=== PATIENT | female | born 1950 | race Caucasian/White ===

== ENCOUNTER 2022-01-25 11:38 | Outpatient (CLI) | payer SELFPAY | END 2022-01-25 11:39 | disposition home or self-care (01) | LOC: DI 11:38 | PROVIDERS: ATTEND Family Medicine | DX: R06.09 Other forms of dyspnea (principal); I51.7 Cardiomegaly; I34.0 Nonrheumatic mitral (valve) insufficiency; I34.8 Other nonrheumatic mitral valve disorders; I77.810 Thoracic aortic ectasia | CPT/HCPCS: 93306 ==

== ENCOUNTER 2022-01-25 12:47 | Outpatient (CLI) | payer SELFPAY ==
--- NOTE | 2022-01-25 13:44 | XRAY Report ---
PROCEDURE: Knee 3 View RT INDICATIONS: CHRONIC PAIN OF RT KNEE TECHNIQUE: 3 views of the right knee(s) were acquired. COMPARISON: None. FINDINGS: Bones: No fractures or dislocations. No patella subluxation. Moderate tricompartmental osteoarthrit is is seen more prominent in medial femoral tibial compartment and patellofemoral compartment. No divina picious bony lesions. Soft tissues: Moderate suprapatellar joint effusion is seen. No suspicious soft tissue calcifications . IMPRESSION: Moderate tricompartmental osteoarthritis more prominent in medial femoral tibial compart ment and patellofemoral compartment. No acute fracture or dislocation. Moderate joint effusion. Reviewed by: Giovanni Brennan MD on 01/25/2022 1:42 PM PDT Approved by: Giovanni Brennan MD on 01/25/2022 1:42 PM PDT Station ID: [id number]
== END 2022-01-25 12:48 | disposition home or self-care (01) ==
LOC: DI 12:47
PROVIDERS: ATTEND Family Medicine
DX: M17.11 Unilateral primary osteoarthritis, right knee (principal); M25.461 Effusion, right knee

== ENCOUNTER 2023-01-22 14:18 | Outpatient (CLI) | payer SELFPAY ==
--- NOTE | 2023-01-22 16:04 | XRAY Report ---
PROCEDURE: Hips 3-4V BILAT INDICATIONS: HIP PAIN LEFT TECHNIQUE: 3 views of hips were acquired. COMPARISON: None. FINDINGS: Bones: No fractures or dislocations. No suspicious bony lesions. Mild degenerative joint disease in hip and sacroiliac joint bilaterally. Degenerative disc disease in the lower lumbar spine. The visu alized pelvic ring appears intact. Soft tissues: No suspicious soft tissue calcifications or masses. IMPRESSION: Mild degenerative joint disease bilaterally. Reviewed by: Sherry Navarro MD on 01/22/2023 3:03 PM AKDT Approved by: Sherry Navarro MD on 01/22/2023 3:03 PM AKDT Station ID: [id number]
--- NOTE | 2023-01-22 16:18 | XRAY Report ---
PROCEDURE: Chest 2 View X-Ray INDICATIONS: DYSPEA ON EXERTION TECHNIQUE: 2 views of the chest were acquired. COMPARISON: None available. FINDINGS: There are respiratory motion artifacts on the lateral view. Surgical changes and devices: None. Lungs and pleura: Bilateral interstitial prominence. No focal consolidation. No pleural effusions or pneumothorax. Mediastinum: Mediastinal contours are normal. Heart size is moderately increased. Bones and chest wall: No suspicious bony abnormalities. Soft tissues appear unremarkable. IMPRESSION: 1. Mild cardiomegaly and bilateral interstitial prominence suggesting mild CHF. Reviewed by: Sherry Navarro MD on 01/22/2023 3:17 PM AKDT Approved by: Sherry Navarro MD on 01/22/2023 3:17 PM AKDT Station ID: [id number]
--- NOTE | 2023-01-22 16:19 | DEXA Report ---
PROCEDURE: Dexa Spine and/or Hip INDICATIONS: POST MENOPAUSAL TECHNIQUE: Dual energy x-ray absorptiometry (DXA) was performed on a [employer] System. Regions measur ed are the AP Spine, femoral neck, and if needed forearm. COMPARISON: None. FINDINGS: Lumbar Spine: Bone Mineral Density 0.949 g/cm/cm,T score -1.9, osteopenic Left Femoral Neck: Bone Mineral Density 0.889 g/cm/cm, T score -1.1, osteopenia Left Hip: Bone Mineral Density 0.974 g/cm/cm,T score -0.3, normal (T score greater or equal to -1.0: NORMAL) (T score from -1.1 to -2.4: OSTEOPENIA) (T score less than or equal to -2.5 to: OSTEOPOROSIS) Impression: Based on WHO criteria, the patient has osteopenia. Patients with diagnosis of osteoporosis or osteopenia should have regular bone mineral density assess ment. For those eligible for Medicare, routine testing is allowed once every 2 years. Testing frequ ency can be increased for patients who have rapidly progressing disease or for those who are receivin g medical therapy to restore bone mass. Reviewed by: Sherry Navarro MD on 01/22/2023 3:18 PM [facility] Approved by: Sherry Navarro MD on 01/22/2023 3:18 PM [facility] Station ID: [id number]
== END 2023-01-22 14:19 | disposition home or self-care (01) ==
LOC: DI 14:18
PROVIDERS: ATTEND Family Medicine
DX: Z13.820 Encounter for screening for osteoporosis (principal); M85.89 Other specified disorders of bone density and structure, multiple sites; M16.0 Bilateral primary osteoarthritis of hip; R06.09 Other forms of dyspnea; I51.7 Cardiomegaly; M54.32 Sciatica, left side; Z78.0 Asymptomatic menopausal state

== ENCOUNTER 2024-06-25 16:04 | Outpatient (CLI) | payer MEDICAID ==
--- NOTE | 2024-06-26 19:10 | XRAY Report ---
PROCEDURE: Lumbar Spine 2-3V INDICATIONS: LOW BACK PAIN TECHNIQUE: 3 view(s) of the lumbar spine were acquired. COMPARISON: None. FINDINGS: Bones: Vertebral body height and alignment is maintained. No suspicious bony lesions. Convex left th oracolumbar scoliosis present. Lower lumbar spine disc space narrowing and hypertrophic facet joints. No malalignment. Soft tissues: Overlying bowel gas pattern is normal. No suspicious soft tissue calcifications. IMPRESSION: Thoracolumbar dextroscoliosis and degenerative disc disease Reviewed by: Davis Ayers MD on 06/26/2024 6:08 PM [facility] Approved by: Davis Ayers MD on 06/26/2024 6:08 PM [facility] Station ID: [id number]
== END 2024-06-25 16:05 | disposition home or self-care (01) ==
LOC: DI 16:04
PROVIDERS: ATTEND Family Medicine
DX: M51.36 Other intervertebral disc degeneration, lumbar region (principal); M41.9 Scoliosis, unspecified; M47.816 Spondylosis without myelopathy or radiculopathy, lumbar region

== ENCOUNTER 2024-10-28 22:13 | Observation (INO) ==
--- NOTE | 2024-10-28 22:28 | ED Physician Documentation ---
History of Present Illness Stated complaint Stated Complaint: SOA Chief complaint Chief Complaint: Resp Additonal information Additional information: 74-year-old woman presents by private vehicle for shortness of breath. 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 She has a history of thyroid issues and is to see a neurologist and coating machine helper in the near future but does not know why. Meds/Allgy Allergies Allergies Allergy/AdvReac Type Severity Reaction Status Date / Time No Known Drug Allergies Allergy Verified 10/28/24 22:31 [facility] Social History Social History Relationship: Do you feel safe in your home environment?: Yes Suffered physical, verbal, emotional, or financial abuse?: No Exam Constitutional Histrionic and hyperventilating, she is incontinent of urine with vomit around her face. Eyes PERRL Significant nystagmus, exam difficult due to patient cooperation. Respiratory breath sounds equal bilaterally, normal respiratory effort and clear to auscultation bilaterally Cardiovascular normal heart rate noted, regular rhythm noted and no murmur Gastrointestinal abdomen normal to inspection, abdomen soft to palpation and nontender to palpation Neurology Initially cannot cooperate with detailed neurologic examination as she will not open her eyes due to her dizziness. As such unable to check for ataxia. Psychiatry oriented x3 Results Vitals Vitals: Vital Signs - 24 hr 10/28/24 22:31 10/28/24 22:39 10/28/24 22:40 Temperature 36.8 C Temperature Source Tympanic Pulse Rate 66 71 Respiratory Rate 28 H 60 H Blood Pressure 160/90 H 186/94 H O2 Saturation 100 100 O2 Source Room air Room air Pain Intensity 4 10 Oxygen O2 Source Room air Labs Labs: Laboratory Tests 10/28/24 22:42 WBC 8.2 RBC 4.06 L Hgb 12.9 Hct 37.0 MCV 91.1 MCH 31.8 H MCHC 34.9 RDW 12.3 Plt Count 174 MPV 9.1 Neut # (Auto) 6.4 Lymph # (Auto) 1.3 L [place] # (Auto) 0.4 Eos # (Auto) 0.1 Baso # (Auto) 0.0 Absolute Nucleated RBC 0.00 Nucleated RBC % 0.0 Sodium 138 Potassium 3.5 Chloride 105 Carbon Dioxide 22 Anion Gap 11.0 BUN 23 H Creatinine 0.5 L Estimated GFR (MDRD) 121 Glucose 153 H Calcium 9.3 Total Bilirubin 0.7 AST 19 ALT 19 Alkaline Phosphatase 87 Total Protein 7.0 Albumin 4.1 Globulin 2.9 Albumin/Globulin Ratio 1.4 PD Medical Decision Making ED course ED course: 74-year-old woman presents with severe acute onset vertigo with epigastric pain. Hard to tell initially if it is central or peripheral. That said she is outside the window for thrombolytics if this were a stroke. It is associated with epigastric pain. Will obtain CT imaging of the head and abdomen as well as lab work and ACS rule out. Medicate with Reglan/Dilaudid. Care to Dr. Logan at 11:30 PM shift change [address] CT imaging. CBC and CMP unremarkable. Low threshold to admit for MRI tomorrow. Discharge Plan Discharge Clinical Impression: Vertigo, Abdominal pain, epigastric Print Language: Turkmen/Castilian Stand Alone Forms: PCP List
[2024-10-28] MEDS: METOCLOPRAMIDE 10 MG/2 ML VIAL IVP STA (22:38)
[2024-10-28] MEDS: HYDROmorphone 1 MG/ML CARPUJECT IVP STA (22:39)
[2024-10-28] MEDS ORDERED: iohexoL-300 100 ML VIAL ONE (22:42)
[2024-10-28 22:49] LABS: BASOPHILS % (AUTO) 0.2 %; EOSINOPHILS # (AUTO) 0.1 10^3/uL (0.0-0.7); EOSINOPHILS % (AUTO) 1.1 %; HGB - HEMOGLOBIN 12.9 g/dL (12.0-16.0); LYMPHOCYTES # (AUTO) 1.3 10^3/uL (1.5-3.5); LYMPHOCYTES % (AUTO) 15.9 %; MEAN CORPUSCULAR HEMOGLOBIN 31.8 pg (27.0-31.0); MEAN CORPUSCULAR HGB CONC 34.9 g/dL (32.0-36.0); MEAN CORPUSCULAR VOLUME 91.1 fL (81.0-99.0); MEAN PLATELET VOLUME 9.1 fL (7.9-10.8); MONOCYTES # (AUTO) 0.4 10^3/uL (0.0-1.0); MONOCYTES % (AUTO) 4.4 %; NEUTROPHILS # (AUTO) 6.4 10^3/uL (1.5-6.6); NEUTROPHILS % (AUTO) 77.9 %; PLT - PLATELET COUNT 174 10^3/uL (130-450); RED BLOOD COUNT 4.06 10^6/uL (4.20-5.40); RED CELL DISTRIBUTION WIDTH 12.3 % (12.0-15.0); WHITE BLOOD COUNT 8.2 x10^3/uL (4.8-10.8)
[2024-10-28 23:08] LABS: ALBUMIN 4.1 g/dL (3.2-5.5); ALBUMIN/GLOBULIN RATIO 1.4 (1.0-2.2); BILIRUBIN,TOTAL 0.7 mg/dL (0.2-1.0); CALCIUM 9.3 mg/dL (8.5-10.3); CREATININE 0.5 mg/dL (0.6-1.3); POTASSIUM 3.5 mmol/L (3.5-4.5)
--- NOTE | 2024-10-28 23:51 | CT Report ---
PROCEDURE: CT Head WO INDICATIONS: IV only, abd pain TECHNIQUE: Noncontrast 4.5 mm thick angled axial sections acquired from the foramen magnum to the vertex. For r adiation dose reduction, the following was used: automated exposure control, adjustment of mA and/or kV according to patient size. COMPARISON: None. FINDINGS: Image quality: Excellent. CSF spaces: Basal cisterns are patent. No extra-axial fluid collections. Ventricles are normal in size and shape. Brain: No midline shift. No intracranial masses or hemorrhage. Garcia-white matter interface is norm al. Bilateral basal ganglia calcifications. Skull and face: Calvarium and visualized facial bones are intact, without suspicious lesions. Sinuses: Visualized sinuses and mastoids are clear. IMPRESSION: No acute intracranial pathology. Reviewed by: Rolando Ruiz MD on 10/28/2024 11:50 PM PST Approved by: Rolando Ruiz MD on 10/28/2024 11:50 PM [facility] Station ID: [id number]
--- NOTE | 2024-10-28 23:58 | CT Report ---
PROCEDURE: CT Abdomen/Pelvis W INDICATIONS: vertigo and abdominal pain. CONTRAST: Omni 300 100ml TECHNIQUE: After the administration of intravenous contrast, a CT scan of the abdomen and pelvis was performed. Images were recorded and evaluated at appropriate window settings. Reformats: coronal and sagittal. F or radiation dose reduction, the following was used: automated exposure control, adjustment of mA and /or kV according to patient size. COMPARISON: 01/22/2023 FINDINGS: Image quality: Suboptimal due to motion artifact and arm positioning. Lower chest: Marked cardiomegaly. Liver: No solid mass. Gallbladder: Surgically absent. Biliary tree: No intrahepatic or extrahepatic dilation, accounting for age. Spleen: No splenomegaly. Pancreas: No pancreatic ductal dilation. Adrenals: No adrenal nodule. Kidneys and ureters: No hydronephrosis. No renal cystic lesion which requires follow up. No solid mas s. Stomach, bowel and peritoneum: No gastric or small bowel dilation. No abnormal wall thickening. No pa thologic free fluid. Diverticulosis without evidence of diverticulitis. Normal appendix. Lymph nodes: No central or retroperitoneal adenopathy. Vessels: No infrarenal aortic aneurysm. Patent portal vein. PELVIS Reproductive organs: Unremarkable. Bladder: No abnormal wall thickening, accounting for underdistention. Pelvic lymph nodes: No pelvic adenopathy by size criteria. Bones: No aggressive osseous abnormality. Other: No significant ventral or inguinal hernia. IMPRESSION: Suboptimal due to motion artifact and arm positioning. Colonic diverticulosis without evidence of diverticulitis. Normal appendix. No definite nephrolithias is. Marked cardiomegaly. Reviewed by: Rolando Ruiz MD on 10/28/2024 11:57 PM PST Approved by: Rolando Ruiz MD on 10/28/2024 11:57 PM PST Station ID: [id number]
--- NOTE | 2024-10-29 00:01 | CT Report ---
PROCEDURE: CT Angio Head/Neck INDICATIONS: CVA sx TECHNIQUE: After the administration of intravenous contrast, 1 mm thick sections acquired from the aortic arch t hrough the [place] of Arizmendi. 3-dimensional zbeqaap-vxbvcoiji-psplswsbvr (MIP) and/or volume renderin g reformats were acquired of the central intracranial vasculature and neck separately. For radiation dose reduction, the following was used: automated exposure control, adjustment of mA and/or kV acco rding to patient size. CONTRAST: Omni 300 100ml COMPARISON: None. FINDINGS: Image quality: Diagnostic. HEAD CT: Central mesenteric fat stranding without adenopathy; findings typically indicate a benign process in the absence of enlarged lymph nodes. HEAD CT ANGIOGRAPHY: Anterior circulation: Intracranial internal carotid arteries are normal in size and flow. The flow within the paired anterior cerebral arteries is normal and symmetric. The flow within the middle cer ebral arteries is normal and symmetric. The anterior communicating artery is seen. No aneurysms are seen. Posterior circulation: Visualized portions of the vertebral arteries demonstrate normal caliber, and join to form a normal appearing basilar artery. Flow within the posterior cerebral arteries is norm al and symmetric. No aneurysms are seen. NECK CT ANGIOGRAPHY: Carotid system: The great vessels demonstrate a conventional anatomy as they arise from the aortic a rch. The origins of the common carotid arteries appear patent. The common carotid arteries demonstr ate normal caliber and courses. The bifurcation regions are both widely patent. The internal caroti d arteries demonstrate normal calibers and courses. Posterior circulation: The origins of the vertebral arteries both appear widely patent. The more perez perior extracranial portions of both vertebral arteries also demonstrate normal courses and calibers. They join to form a normal appearing basilar artery. Soft tissues: Visualized neck soft tissues demonstrate no suspicious abnormalities. Bones: No suspicious bony lesions. Visualized cervical spine appears normally aligned. IMPRESSION: No significant intracranial arterial abnormality is seen. No significant abnormality is seen within the arteries of the neck. The estimate of stenosis included in the report of the imaging study was calculated using the NASCET method Reviewed by: Rolando Ruiz MD on 10/28/2024 11:59 PM PST Approved by: Rolando Ruiz MD on 10/28/2024 11:59 PM PST Station ID: [id number]
[2024-10-29] MEDS: iohexoL-300 100 ML VIAL IVP ONE (00:37)
[2024-10-29] MEDS: HYDROmorphone 1 MG/ML CARPUJECT IVP STA (00:57)
[2024-10-29] MEDS ORDERED: MELATONIN 3 MG TABLET PO PRN (02:22)
[2024-10-29] MEDS ORDERED: MORPHINE 10 MG/ML VIAL IVP PRN (02:22)
[2024-10-29] MEDS ORDERED: BENZONATATE 100 MG CAPSULE PO PRN (02:22)
--- NOTE | 2024-10-29 02:32 | HISTORY & PHYSICAL EXAMINATION ---
Chief Complaint Chief Complaint Chief Complaint: dizziness, abd pain + nausea History of Present Illness History Obtained From History obtained from: ed chart review Exam Limitations: IT cart connection issues - please refer to ed charting for details History of Present Illness HPI Comment/Other: pt with acute onset of dizziness + nausea with epigastric and abdominal discomfort that started about 5 pm yesterday evening without apparent inciting factors. no falls or seizures reported. no reports of chest pain, fevers, chills. Review of Systems per ed charting [facility] Social History Social History Relationship: Do you feel safe in your home environment?: Yes Suffered physical, verbal, emotional, or financial abuse?: No Meds/Allgy Allergies Allergies Allergy/AdvReac Type Severity Reaction Status Date / Time No Known Drug Allergies Allergy Verified 10/28/24 22:31 Exam Exam per ed charting Conclusion/Plan Problem List (1) Vertigo: Lab Results 10/28/24 22:42 10/28/24 22:42 Other Other Results/Comments: pt with - - vertigo unclear etiology imaging thus far negative check mri check 2d echo meclizine and anti-nausea meds have helped - abdominal pain + nausea likely related to above epigastric pain imaging negative check lipase levels supportive mgmt f/u labs, imaging, neuro checks further orders per clinical course
--- NOTE | 2024-10-29 02:37 | ED Physician Documentation ---
ED Addendum Addendum Addendum: Patient endorsed to me by Dr. Pitts awaiting CTA head and neck results as well as CT abdomen pelvis results. Plan to admit her for MRI to rule out central etiology for her vertigo. I discussed with Dr. Connell, accepting telehospitalist. Disposition admit Condition stable Impression 1 vertigo 2 abdominal pain 3 nausea and vomiting Discharge Plan Discharge Patient Disposition: 66 [facility] DC/Xfer Condition: Stable Clinical Impression: Vertigo, Abdominal pain, epigastric
[2024-10-29] MEDS: MORPHINE 2 MG/ML CARPUJECT IVP PRN (04:42)
[2024-10-29] MEDS: ONDANSETRON 4 MG/2 ML VIAL IVP PRN (04:42)
[2024-10-29 06:27] LABS: BASOPHILS % (AUTO) 0.2 %; HCT - HEMATOCRIT 36.5 % (37.0-47.0); HGB - HEMOGLOBIN 12.7 g/dL (12.0-16.0); LYMPHOCYTES # (AUTO) 0.6 10^3/uL (1.5-3.5); LYMPHOCYTES % (AUTO) 10.2 %; MEAN CORPUSCULAR HGB CONC 34.8 g/dL (32.0-36.0); MEAN CORPUSCULAR VOLUME 91.9 fL (81.0-99.0); MEAN PLATELET VOLUME 9.2 fL (7.9-10.8); MONOCYTES # (AUTO) 0.3 10^3/uL (0.0-1.0); NEUTROPHILS # (AUTO) 5.4 10^3/uL (1.5-6.6); NEUTROPHILS % (AUTO) 85.4 %; PLT - PLATELET COUNT 158 10^3/uL (130-450); RED BLOOD COUNT 3.97 10^6/uL (4.20-5.40); RED CELL DISTRIBUTION WIDTH 12.3 % (12.0-15.0); WHITE BLOOD COUNT 6.3 x10^3/uL (4.8-10.8)
[2024-10-29] MEDS ORDERED: ZINC OXIDE 20% OINT 30 GM TUBE TOP PRN (06:35)
[2024-10-29] MEDS: LACTATED RINGERS 1,000 ML IV SCH (06:43)
[2024-10-29 06:51] LABS: ALBUMIN 3.9 g/dL (3.2-5.5); ALBUMIN/GLOBULIN RATIO 1.4 (1.0-2.2); BILIRUBIN,TOTAL 0.8 mg/dL (0.2-1.0); CALCIUM 8.8 mg/dL (8.5-10.3); CHOL/HDL RATIO 2.1 (<4.4); CHOLESTEROL 137 mg/dL; CREATININE 0.4 mg/dL (0.6-1.3); HDL CHOLESTEROL 65 mg/dL; LDL CHOLESTEROL,CALCULATED 64 mg/dL; MAGNESIUM 1.8 mg/dL (1.7-2.3); TOTAL PROTEIN 6.7 g/dL (6.4-8.9); TRIGLYCERIDES 42 mg/dL; VLDL CHOLESTEROL 8 mg/dL
[2024-10-29 07:03] LABS: THYROID STIMULATING HORMONE 2.92 uIU/mL (0.34-5.60)
[2024-10-29] MEDS: ENOXAPARIN 40 MG/0.4 ML SYRINGE SUBQ SCH (09:02)
[2024-10-29] MEDS: LACTOBACILLUS RHAMNOSUS GG CAPSULE PO SCH (09:03)
[2024-10-29] MEDS: MULTIVITAMIN W/MINERALS TABLET PO SCH (09:03)
[2024-10-29 11:18] LABS: ESTIMATED AVERAGE GLUCOSE 97 mg/dL (70-100)
--- NOTE | 2024-10-29 11:45 | PHARMACY PROGRESS NOTE ---
Best Possible Medication History Admit Date and Time: 10/29/24 0220 Home Medications Medication Instructions Recorded Confirmed Type atorvastatin 20 mg tablet 20 mg PO QPM 10/29/24 10/29/24 History levothyroxine 75 mcg tablet 75 mcg PO QDAC 10/29/24 10/29/24 History nortriptyline 10 mg capsule 10 mg PO QPM 10/29/24 10/29/24 History piroxicam 20 mg capsule 20 mg PO DAILY PRN pain 10/29/24 10/29/24 History Processed by: Pharmacy Medications reviewed in ED?: No Medication History completed: Yes Patient Interview: Completed (W/ ACTUARIAL ASSISTANT) Secondary Source(s): Pharmacy records and Insurance records [facility] Statement: As the person ultimately responsible for medication therapy, providers are able to order a medication from an existing home medication list in [facility] via the "Reconcile Routine" prior to Confirmation of that medication by administrative support specialist. Such practice is discouraged except when the physician, in their clinical judgment, deems that a medical need exists for a medication without regard to previous use.
[2024-10-29] MEDS: ONDANSETRON 4 MG/2 ML VIAL IVP ONE (11:50)
[2024-10-29] MEDS ORDERED: ONDANSETRON INJ 4 MG in SODIUM CHLORIDE 0.9% 50 ML IVP SCH (12:00)
[2024-10-29] MEDS: MORPHINE 2 MG/ML CARPUJECT IVP STA (17:04)
[2024-10-29] MEDS: ATORVASTATIN 10 MG TABLET PO SCH (21:22)
[2024-10-30 05:36] LABS: BASOPHILS % (AUTO) 0.4 %; EOSINOPHILS % (AUTO) 0.7 %; HGB - HEMOGLOBIN 10.9 g/dL (12.0-16.0); LYMPHOCYTES # (AUTO) 1.1 10^3/uL (1.5-3.5); LYMPHOCYTES % (AUTO) 23.2 %; MEAN CORPUSCULAR HEMOGLOBIN 31.5 pg (27.0-31.0); MEAN CORPUSCULAR VOLUME 95.4 fL (81.0-99.0); MEAN PLATELET VOLUME 9.4 fL (7.9-10.8); MONOCYTES # (AUTO) 0.3 10^3/uL (0.0-1.0); MONOCYTES % (AUTO) 6.6 %; NEUTROPHILS # (AUTO) 3.2 10^3/uL (1.5-6.6); NEUTROPHILS % (AUTO) 68.9 %; PLT - PLATELET COUNT 155 10^3/uL (130-450); RED BLOOD COUNT 3.46 10^6/uL (4.20-5.40); RED CELL DISTRIBUTION WIDTH 12.8 % (12.0-15.0); WHITE BLOOD COUNT 4.6 x10^3/uL (4.8-10.8)
[2024-10-30 05:55] LABS: CALCIUM 8.1 mg/dL (8.5-10.3); CREATININE 0.5 mg/dL (0.6-1.3); POTASSIUM 3.7 mmol/L (3.5-4.5)
[2024-10-30] MEDS: LEVOTHYROXINE 75 MCG TABLET PO SCH (06:38)
[2024-10-30] MEDS ORDERED: GI COCKTAIL 120 ML BOTTLE PO PRN (07:16)
[2024-10-30] MEDS ORDERED: LORazepam 1 MG TABLET PO PRN (07:16)
[2024-10-30] MEDS: SODIUM CHLORIDE FLUSH 0.9% 10 ML SYRINGE IVP SCH ×2 (08:45)
[2024-10-30] MEDS: polyethylene glycoL 3350 17 GM PACKET PO SCH (08:45)
[2024-10-30] MEDS: LORazepam 2 MG/ML VIAL IVP PRN (11:24)
[2024-10-30] MEDS: ACETAMINOPHEN 325 MG TABLET PO PRN (11:30)
[2024-10-30] MEDS: MAGNESIUM HYDROXIDE 2,400 MG/30 ML UDC PO ONE (12:21)
--- NOTE | 2024-10-30 14:44 | Discharge Summary ---
Discharge Summary Admit Date: 10/29/24 Discharge Date: 10/30/24 Discharging Provider: Ignacio Arizmendi NP Primary Care Provider: Fahad Mackenzie Code Status: Attempt Resuscitation DIAGNOSES Admission Diagnoses: Vertigo Abdominal pain Discharge Diagnoses with Status of Each Condition: Vertigochronic Abdominal painresolved HPI History of Present Illness: pt with acute onset of dizziness + nausea with epigastric and abdominal discomfort that started about 5 pm yesterday evening without apparent inciting factors. no falls or seizures reported. no reports of chest pain, fevers, chills. HOSPITAL COURSE Hospital Course: In the ER, CT head, CTA head and neck were performed and found to be negative. CT abdomen showed Diverticulosis without diverticulitis. Patient underwent echocardiogram, results still pending. Was given IV fluids for dehydration, and stool softeners for constipation. MRI was attempted, but we were unable to complete this due to severe anxiety in spite of IV Ativan. She was evaluated by physical therapy, and they report that she is safe to go home. I am sending her home on aspirin and an increased dose of Lipitor. Patient reports some constipation to make, I have encouraged her to use hqdj-fad-eorsqje stool softeners and fiber supplements Patient has expressed concern over an outpatient lumbar spine MRI. She is worried that she will miss this because of her recent hospitalization. I am reaching out to our MRI department to make sure they are aware that she was admitted and not near her phone. Whenever she does have her L-spine MRI, she will need significant amounts of anxiolytics ALLERGIES Allergies Allergy/AdvReac Type Severity Reaction Status Date / Time No Known Drug Allergies Allergy Verified 10/28/24 22:31 MEDICATIONS Ambulatory Orders Medication Instructions Recorded Confirmed levothyroxine 75 mcg tablet 75 mcg PO QDAC 10/29/24 10/29/24 nortriptyline 10 mg capsule 10 mg PO QPM 10/29/24 10/29/24 piroxicam 20 mg capsule 20 mg PO DAILY PRN pain 10/29/24 10/29/24 aspirin 81 mg tablet,delayed 81 mg PO DAILY #30 tabs 10/30/24 release atorvastatin 20 mg tablet 40 mg (2 x 20 mg) PO QPM #60 tabs 10/30/24 10/29/24 PHYSICAL EXAM AT DISCHARGE General Appearance: positive No acute distress and Alert Eyes Bilateral: positive Normal inspection and PERRL ENT: positive ENT inspection nml Neck: positive Nml inspection Respiratory: positive Chest non-tender Cardiovascular: positive Regular rate & rhythm Peripheral Pulses: positive 2+ Abdomen: positive Non-tender Skin: positive Color nml Extremities: positive Non-tender Neurologic/Psychiatric: positive Oriented x3 LABS 10/30/24 04:44 10/30/24 04:44 SEPSIS Current Stage of Sepsis: Ruled out FOLLOW UP Follow Up: With PCP TIME SPENT Time Spent in Discharge (Minutes): 35 Discharge Plan Discharge Patient Disposition: 01 Home, Self Care Condition: Stable Medically Cleared Date:: 10/30/24 Prescriptions: New aspirin 81 mg tablet,delayed release (DR/EC) 81 mg PO DAILY Qty: 30 2RF Continued levothyroxine 75 mcg tablet 75 mcg PO QDAC Patient Comments: TAKE 1 TABLET BY MOUTH ONCE DAILY nortriptyline 10 mg capsule 10 mg PO QPM Patient Comments: TAKE 1 CAPSULE BY MOUTH AT BEDTIME piroxicam 20 mg capsule 20 mg PO DAILY PRN (Reason: pain) Patient Comments: TAKE 1 CAPSULE BY MOUTH ONCE DAILY NEEDED Changed atorvastatin 20 mg tablet 40 mg PO QPM Qty: 60 0RF Patient Comments: TAKE 1 TABLET BY MOUTH IN THE EVENING Diet: Regular Health Concerns: You are a 74-year-old female with past medical history significant for High cholesterol, who came in with dizziness and abdominal pain with nausea. CT head, CT head and neck were negative for any stroke or vascular problem in your head. CT of your abdomen and pelvis was performed, and it showed Diverticulosis without evidence of diverticulitis. You were held in observation so we could complete an echocardiogram and an MRI to rule out stroke. Echocardiogram has been completed and the results are still pending. We were unable to obtain an MRI. I would like to discharge you home with close follow-up with your primary care provider. I am adding a baby aspirin for you to take every day and I am doubling your dose of Lipitor to 40 mg daily. If this was a mini stroke, these medications will help prevent any further strokes. Further workup for vertigo/dizziness can be directed by your primary care provider Care Plan Goals: I would like you to take your aspirin and Lipitor as prescribed and follow-up with your primary care provider for any further management of your dizziness I would like for you to drink plenty of water and eat foods high in fiber for your constipation. I would also recommend [id number]-[id number] stool softeners. Assessment: I would like for you to be active, and perform normal activities of daily living as you have before. Please reach out to healthcare provider if any of your symptoms worsen.You are going home with your family, and will follow-up with primary care provider within a week Plan of Treatment: Aspirin/Lipitor as above Follow-up with PCP in 1 week Stool softeners Activity as tolerated Print Language: [place] Islander/Castilian Patient Instructions: Dizziness Vertigo Balance Safety Stand Alone Forms: PCP List
[2024-10-30 14:58] VITALS: O2SAT 96
--- NOTE | 2024-10-30 15:55 | PT Plan of Care ---
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 Pt negative for nystagmus, mild dizziness reported during L head rotation, resolved <30sec. Pt completed full Maria Antonia maneuver d/t possible nystagmus repression. Asymptomatic after treatment and able to amb to/from bathroom with SBA and complete toileting tasks with SBA. ASSESSMENT Assessment: Pt is a pleasant Lithuanian speaking 74yo F referred for PT eval for BPPV r/o. Promethean science interpreter used throughout evaluation. Pt presented to hospital with abd pain, nausea, and emesis at home. Stroke r/o negative for acute infarct. Pt is indep at baseline and lives in mobile home with but she reports he is at work nearly 12hrs daily and she is home alone during that time. Upon PT eval, pt describes dizziness when she gets up and rolls in bed and states it "feels like the room is spinning." Pt also states she feels her dizziness is related to her constipation. PT/OT complete Adán-Halpike assessment; negative for nystagmus but mildly symptomatic so complete Maria Antonia maneuver. Pt without dizziness after treatment and has 1st BM in 3 days after testing. Pt is [place] in room using FWW and amb 2x30' with SBA overall. Pt does not present with clinical s/sx of BPPV and presents near baseline mobility. Pt does not appear to have further acute PT needs. When medically clear, PT rec dc home with increased support from . PLAN Frequency: Evaluation only, no further P.T. DISCHARGE RECOMMENDATIONS Discharge Location: Previous Living Situation Support/Services Needed: With assist Transport Needs at Discharge: Personal vehicle
[2024-10-30 16:49] VITALS: BP 130/76; TEMP 98.2
[2024-10-30] MEDS: MECLIZINE 12.5 MG TABLET PO PRN (17:16)
== END 2024-10-30 18:28 | disposition home or self-care (01) ==
LOC: MS2 22:13 → ED 22:13 → MS2 10-29 03:32
PROVIDERS: ADMIT Student in an Organized Health Care Education/Training Program; ATTEND Student in an Organized Health Care Education/Training Program